=== PATIENT | female | born 1995 | race Native Hawaiian/Other Pacific Islander ===

== ENCOUNTER 2023-06-07 15:27 | Emergency (ER) | payer MEDICAID ==
[~2023-06-07] VITALS: Ht 154.9 cm; Wt 40.9 kg
[2023-06-07 16:14] LABS: HEMATOCRIT 42.7 % (37.0-47.0); HEMOGLOBIN 14.3 g/dL (12.5-16.0); MEAN CELL VOLUME 91 fl (78-100); MEAN CORPUSCULAR HEMOGLOBIN 30 pg (27-31); MEAN CORPUSCULAR HGB CONC 34 g/dL (33-37); MEAN PLATELET VOLUME 9.3 fl (7.4-10.4); PLATELET COUNT 188 K/mm3 (130-400); RED CELL DISTRIBUTION WIDTH 12.2 % (11.5-14.5)
[2023-06-07] MEDS ORDERED: Ondansetron 4 MG/2 ML VIAL IV ONE (16:15)
[2023-06-07] MEDS ORDERED: NS 1,000 ML IV SCH (16:15)
[2023-06-07 16:25] LABS: ALBUMIN 4.8 g/dL (3.5-5.0)
[2023-06-07 16:27] LABS: BAND 5 % (0-10); CALCIUM 9.8 mg/dL (8.3-10.5); LYMPHOCYTE 1 % (20-51); MONOCYTE 1 % (3-10); NEUTROPHILS 93 % (42-75)
[2023-06-07 16:28] LABS: TOTAL PROTEIN 8.1 g/dL (6.4-8.3)
[2023-06-07 16:30] LABS: TOTAL BILIRUBIN 0.7 mg/dL (0.2-1.2)
[2023-06-07 17:15] VITALS: BP 90/46
== END 2023-06-07 17:20 | disposition home or self-care (01) ==
LOC: ED 15:27
PROVIDERS: Physician Assistant
DX: K52.9 Noninfective gastroenteritis and colitis, unspecified (principal)
CPT/HCPCS: J2405; J7030

== ENCOUNTER 2023-07-16 13:34 | Emergency (ER) | payer SELFPAY | END 2023-07-16 15:15 | disposition home or self-care (01) | LOC: ED 13:34 | DX: S93.402A Sprain of unspecified ligament of left ankle, initial encounter (principal); W10.9XXA Fall (on) (from) unspecified stairs and steps, initial encounter ==

== ENCOUNTER 2023-07-17 16:00 | Emergency (ER) | payer SELFPAY | END 2023-07-17 18:15 | disposition home or self-care (01) | LOC: ED 16:00 | DX: S93.402A Sprain of unspecified ligament of left ankle, initial encounter (principal); W10.9XXA Fall (on) (from) unspecified stairs and steps, initial encounter; Y92.009 Unspecified place in unspecified non-institutional (private) residence as the place of occurrence of the external cause | CPT/HCPCS: 15969; L4386 ==

== ENCOUNTER → 2023-11-30 | Outpatient (CLI) | payer SELFPAY ==
[~2023-11-30] MED LIST: Iohexol 300 - 100 ML VIAL IV ONE
== END ==
LOC: RAD 08:50
DX: R91.8 Other nonspecific abnormal finding of lung field (principal)
CPT/HCPCS: Q9967